=== PATIENT | male | born 1955 | race Caucasian/White ===

== ENCOUNTER 2016-10-06 08:58 | Emergency (ER) | payer SELFPAY ==
[~2016-10-06] VITALS: Ht 175.3 cm; Wt 85.9 kg
[2016-10-06 09:00] VITALS: BP 172/83; TEMP 99.1
[2016-10-06] MEDS ORDERED: GLUCOPHAGE500 MG/TAB PO (09:04)
[2016-10-06] MEDS ORDERED: ONGLYZA5 MG PO (09:05)
[2016-10-06] MEDS ORDERED: GLUCOTROL XL2.5 MG PO (09:05)
[2016-10-06 09:20] VITALS: PULSE 94
[2016-10-06] MEDS ORDERED: ULTRAM 50MG TAB50 MG PO (10:04)
== END 2016-10-06 10:15 | disposition home or self-care (01) ==
LOC: COL.ER 08:58
DX: S49.91XA Unspecified injury of right shoulder and upper arm, initial encounter (principal); E11.9 Type 2 diabetes mellitus without complications; Z79.84 Long term (current) use of oral hypoglycemic drugs; X50.0XXA Overexertion from strenuous movement or load, initial encounter; X50.3XXA Overexertion from repetitive movements, initial encounter; Y99.0 Civilian activity done for income or pay

== ENCOUNTER 2020-07-23 10:09 | Emergency (ER) | payer OTHER ==
[~2020-07-23] VITALS: Ht 175.3 cm; Wt 80.0 kg
[~2020-07-23 10:09] MED LIST: GLUCOPHAGE500 MG/TAB PO; GLUCOTROL XL2.5 MG PO; ONGLYZA5 MG PO; ULTRAM 50MG TAB50 MG PO
[2020-07-23 10:30] VITALS: TEMP 99.1
[2020-07-23 10:50] LABS: HEMATOCRIT 42.5 % (42.0-52.0); HEMOGLOBIN 13.6 g/dl (13.5-18.0); MEAN CELL VOLUME 91 fl (80.0-100.0); MEAN CORPUSCULAR HEMOGLOBIN 29 pg (27.0-31.0); MEAN CORPUSCULAR HGB CONC 32 g/dl (33.0-37.0); MEAN PLATELET VOLUME 10.2 fl (7.4-10.4); PLATELET COUNT 313 K/mm3 (130-400); RED BLOOD COUNT 4.65 M/mm3 (4.20-5.60); REDCELL DISTRIBUTION WIDTH-CV 13.3 % (11.5-14.5)
[2020-07-23 10:56] LABS: INR 1.1 (0.8-3.0)
[2020-07-23 10:57] LABS: COLLECTION METHOD CLEAN CATCH
[2020-07-23 10:59] LABS: PARTIAL THROMBOPLASTIN TIME 29.3 SECONDS (26.0-37.0)
[2020-07-23 11:01] LABS: ALBUMIN 4.2 gm/dL (3.5-5.0); BILIRUBIN,TOTAL 0.4 mg/dL (0.0-1.0); CALCIUM 8.9 mg/dL (8.4-10.2); CREATININE, serum 0.88 (0.66-1.25); POTASSIUM 4.8 mmol/L (3.4-5.0); TOTAL PROTEIN 7.8 gm/dL (6.4-8.2)
[2020-07-23 11:03] LABS: PH 5 (5-8); SQUAMOUS EPITHELIAL None Seen /hpf; URINE APPEARANCE Clear; URINE BACTERIA None Seen /hpf; URINE BILIRUBIN Negative (NEGATIVE); URINE BLOOD Negative (NEGATIVE); URINE COLOR Straw; URINE GLUCOSE Negative (NEGATIVE); URINE KETONE Negative (NEGATIVE); URINE LEUKOCYTE ESTERASE Negative (NEGATIVE); URINE NITRATE Negative (NEGATIVE); URINE PROTEIN(semi-quant) Negative (NEGATIVE); URINE RBC 0-2 /hpf; URINE UROBILINOGEN Negative (NEGATIVE)
[2020-07-23 11:14] LABS: TROPONIN-I 0.107 ng/mL (0.000-0.035)
[2020-07-23 13:25] VITALS: BP 128/74; PULSE 120
== END 2020-07-23 13:20 | disposition short-term general hospital (02) ==
LOC: COL.ER 10:09
PROVIDERS: Family Medicine
DX: I50.9 Heart failure, unspecified (principal); I21.4 Non-ST elevation (NSTEMI) myocardial infarction; E11.9 Type 2 diabetes mellitus without complications; F17.200 Nicotine dependence, unspecified, uncomplicated; Z79.84 Long term (current) use of oral hypoglycemic drugs
CPT/HCPCS: J1644; J1940; J3010; J7030

== ENCOUNTER 2020-08-05 11:21 | Emergency (ER) | payer OTHER ==
[~2020-08-05] VITALS: Ht 175.3 cm; Wt 77.3 kg
[2020-08-05 12:03] LABS: MEAN CELL VOLUME 92 fl (80.0-100.0); MEAN CORPUSCULAR HGB CONC 32 g/dl (33.0-37.0); MEAN PLATELET VOLUME 9.6 fl (7.4-10.4); PLATELET COUNT 380 K/mm3 (130-400); RED BLOOD COUNT 3.03 M/mm3 (4.20-5.60); REDCELL DISTRIBUTION WIDTH-CV 14.3 % (11.5-14.5)
[2020-08-05 12:05] LABS: HEMATOCRIT 27.9 % (42.0-52.0); MEAN CORPUSCULAR HEMOGLOBIN 30 pg (27.0-31.0)
[2020-08-05 12:06] LABS: INR 1.3 (0.8-3.0); PROTHROMBIN TIME 14.3 SECONDS (9.7-12.8)
[2020-08-05 12:09] LABS: PARTIAL THROMBOPLASTIN TIME 31.5 SECONDS (26.0-37.0)
[2020-08-05 12:17] LABS: CALCIUM 9.2 mg/dL (8.4-10.2); CREATININE, serum 1.53 (0.66-1.25); POTASSIUM 5.2 mmol/L (3.4-5.0); TOTAL PROTEIN 7.8 gm/dL (6.4-8.2)
[2020-08-05 12:26] LABS: BAND 1 % (0-10); EOSINOPHIL 6 % (0-4); LYMPHOCYTE 10 % (20.0-51.0); NEUTROPHILS 77 % (42.0-75.2); PLATELET ESTIMATE NORMAL (NORMAL)
[2020-08-05 12:27] LABS: HYPOCHROMIA 2+
[2020-08-05 12:36] LABS: TROPONIN-I 0.038 ng/mL (0.000-0.035)
[2020-08-05 14:15] VITALS: BP 87/52; PULSE 63; TEMP 98.5
== END 2020-08-05 14:17 | disposition short-term general hospital (02) ==
LOC: COL.ER 11:21
PROVIDERS: Family Medicine
DX: I95.9 Hypotension, unspecified (principal); I25.10 Atherosclerotic heart disease of native coronary artery without angina pectoris; E11.9 Type 2 diabetes mellitus without complications; Z95.9 Presence of cardiac and vascular implant and graft, unspecified; Z79.84 Long term (current) use of oral hypoglycemic drugs
CPT/HCPCS: J0692; J7030

== ENCOUNTER 2020-11-22 15:19 | Outpatient (RCR) | payer OTHER | END 2020-11-28 | disposition home or self-care (01) | LOC: COL.CR | DX: Z48.812 Encounter for surgical aftercare following surgery on the circulatory system (principal); Z95.1 Presence of aortocoronary bypass graft ==

== ENCOUNTER 2020-11-29 13:37 | Outpatient (RCR) | payer OTHER | END 2020-12-15 15:39 | disposition home or self-care (01) | LOC: COL.CR 13:37 | DX: Z48.812 Encounter for surgical aftercare following surgery on the circulatory system (principal); Z95.1 Presence of aortocoronary bypass graft ==

== ENCOUNTER 2021-10-04 09:00 | Emergency (ER) | payer MEDICARE ==
[~2021-10-04] VITALS: Ht 172.7 cm; Wt 84.1 kg
[2021-10-04 10:00] LABS: BASO % 0.4 % (0.0-2.0); EOS # 0.2 K/mm3 (0.0-0.7); EOS % 1.7 % (0.0-4.0); GRAN # 7.6 K/mm3 (1.4-6.5); GRAN % 78.3 % (42.2-75.2); HEMATOCRIT 45.5 % (42.0-52.0); LYMPH # 1.2 K/mm3 (1.2-3.4); LYMPH % 12.5 % (20.0-51.0); MEAN CELL VOLUME 89 fl (80.0-100.0); MEAN CORPUSCULAR HEMOGLOBIN 29 pg (27-31); MEAN CORPUSCULAR HGB CONC 33 g/dl (33.0-37.0); MEAN PLATELET VOLUME 10.2 fl (7.4-10.4); MONO # 0.7 K/mm3 (0.1-0.6); PLATELET COUNT 279 K/mm3 (130-400); RED BLOOD COUNT 5.11 M/mm3 (4.20-5.60); REDCELL DISTRIBUTION WIDTH-CV 13.3 % (11.5-14.5)
[2021-10-04 10:14] LABS: BILIRUBIN,TOTAL 0.5 mg/dL (0.2-1.2); CALCIUM 9.4 mg/dL (8.4-10.2); CREATININE, serum 0.83 mg/dL (0.72-1.25); POTASSIUM 4.6 mmol/L (3.5-4.5)
[2021-10-04 10:20] LABS: TROPONIN-I 0.015 ng/mL (0.00-0.033)
[2021-10-04] MEDS ORDERED: TOPROL XL 50MG50 MG PO (12:02)
[2021-10-04 12:39] VITALS: BP 143/114; PULSE 90; TEMP 97.6
== END 2021-10-04 12:40 | disposition home or self-care (01) ==
LOC: COL.ER 09:00
PROVIDERS: Personal Emergency Response Attendant
DX: I10 Essential (primary) hypertension (principal); Z76.0 Encounter for issue of repeat prescription; Z87.891 Personal history of nicotine dependence

== ENCOUNTER 2023-09-03 05:27 | Day surgery (SDC) | payer MEDICARE ==
[~2023-09-03] VITALS: Ht 172.7 cm; Wt 71.8 kg
[2023-09-03] VITALS (13 sets, daily range): BP systolic 107–163; BP diastolic 57–83; PULSE 58–81; TEMP 97.5–98.1
[~2023-09-03 05:27] MED LIST changes: +LR 1,000 ML IV SCH; +TOPROL XL 50MG50 MG PO
[2023-09-03] MEDS ORDERED: NS 1,000 ML IV SCH ×2 (06:00→09:30)
[2023-09-03] MEDS ORDERED: GLUCOTROL 5M5 MG/TAB PO (06:15)
[2023-09-03] MEDS ORDERED: FLEXERIL 1010 MG/TAB PO (06:17)
[2023-09-03] MEDS ORDERED: NORCO 325 MG-51 TAB PO (06:18)
[2023-09-03] MEDS ORDERED: CYMBALTA 20MG20 MG PO (06:18)
[2023-09-03] MEDS ORDERED: PRINIVIL20 MG PO (06:19)
[2023-09-03] MEDS ORDERED: CRESTOR20 MG PO (06:20)
[2023-09-03] MEDS ORDERED: CANA100T PO (06:21)
--- NOTE | 2023-09-03 06:25 | NUR ---
CALL PLACED TO GUSTAVO THACKER CRNA FOR CLARIFICATION OF ANESTHESIA ORDERS. TELEPHONE ORDER FROM GUSTAVO THACKER TO DISCONTINUE LR ORDER AND KEEP NS ORDER, CONSENT FOR GENERAL ANESTHESIA/SPINAL BLOCK WITH SEDATION. SEE ORDERS.
[2023-09-03] MEDS ORDERED: fentaNYL 50 MCG/ML 5 ML VIAL ONE (06:34)
[2023-09-03] MEDS ORDERED: Midazolam 2 MG/2 ML VIAL ONE (06:34)
[2023-09-03] MEDS ORDERED: Ondansetron 4 MG/2 ML VIAL ONE (06:34)
[2023-09-03] MEDS ORDERED: Lidocaine PF 2% (20 MG/ML) 5 ML VIAL ONE (06:34)
[2023-09-03] MEDS ORDERED: Tranexamic Acid 1,000 MG/10 ML VIAL ONE (07:53)
[2023-09-03] MEDS ORDERED: Morphine 4 MG/ML VIAL IM ONE (08:04)
[2023-09-03] MEDS ORDERED: Thrombin Human (Recombinant) 5,000 UNITS VIAL TP ONE (08:04)
[2023-09-03] MEDS ORDERED: Ondansetron 4 MG/2 ML VIAL IV PRN (08:15)
[2023-09-03] MEDS ORDERED: fentaNYL 50 MCG/ML 1 ML SYRINGE/VIAL [PACU/SDC ONLY] IV PRN (08:15)
[2023-09-03] MEDS ORDERED: HYDROmorphone 1 MG/1 ML SYRINGE [PACU/SDC ONLY] IV PRN (08:15)
[2023-09-03] MEDS ORDERED: Magnes Hydrox (MOM) 80 MG/ML 30 ML CUP PO PRN (09:30)
[2023-09-03] MEDS ORDERED: Mag/Al Hydrox/Simeth Susp 30 ML CUP PO PRN (09:30)
[2023-09-03] MEDS ORDERED: oxyCODONE 5 MG TAB PO PRN (09:30)
[2023-09-03] MEDS ORDERED: Morphine 4 MG/ML VIAL IV PRN (09:30)
[2023-09-03] MEDS ORDERED: Acetaminophen 500 MG TAB PO PRN (09:30)
[2023-09-03] MEDS ORDERED: Naloxone 0.4 MG/ML VIAL IV PRN (09:30)
[2023-09-03] MEDS ORDERED: Bisacodyl 5 MG TAB PO PRN (09:30)
[2023-09-03] MEDS ORDERED: Acetaminophen 500 MG TAB PO SCH (10:00)
--- NOTE | 2023-09-03 10:36 | NUR ---
PATIENT ARRIVED TO FLOOR AT 1000. DRESSING TO RT KNEE CDI. PATIENT STATES NO PAIN AT THIS TIME. BLOCK STILL IN EFFECT AT THSI TIME PATIENT CAN FEEL TOAUCH TO LOWER EXTRIMITY BUT UNABLE TO MOVE LEGS AT THSI TIME DUE TO BLOCK. VSS. PATIENT RECEIVED WATER AND SOME JELLO AND TOLERATED WELL. PATIENT HAS NO NEEDS AT THIS TIME. CALL LIGHT IN REACH
--- NOTE | 2023-09-03 12:10 | NUR ---
Data: Spiritual care visit attempted during Study Specialist rounds. Patient politely declined. Assessment: None. Patient declined. Plan of Care: Chaplains will remain available as needed requested while Patient is admitted to this hospital.
[2023-09-03] MEDS ORDERED: ASPIRIN E.C. 8181 MG PO (12:57)
[2023-09-03] MEDS ORDERED: Albuterol/Ipratropium 3 MG-0.5 MG/3 ML Neb Soln IH PRN (13:00)
[2023-09-03] MEDS ORDERED: ceFAZolin 2 G in Water For Injection,Sterile 20 ML IV SCH (14:00)
--- NOTE | 2023-09-03 14:39 | NUR ---
PATIENT CALLED STATING PAIN 9/10, PAIN MED GIVEN ORDERED. WILL CONTINUE TO MONITOR.
[2023-09-03] MEDS ORDERED: Insulin Lispro (HumaLOG) SQ SCH (17:00)
--- NOTE | 2023-09-03 20:00 | NUR ---
PT A&O X4 SITTING UP IN RECLINER. SBA BACK TO BED. VSS. PT RATING PAIN 4/10, WAS GIVEN PRN PAIN MEDS AT SHIFT CHANGE BY DAY NURSE. DRSG TO RIGHT KNEE CDI. INT TO LEFT WRIST PATENT. ERROL TO LLE. PT DENYING FURTHER NEEDS. CALL LIGHT IN REACH.
[2023-09-03] MEDS ORDERED: Ascorbic Acid 500 MG TAB PO SCH (21:00)
[2023-09-03] MEDS ORDERED: Celecoxib 200 MG CAP PO SCH (21:00)
[2023-09-03] MEDS ORDERED: Atorvastatin 40 MG TAB PO SCH (21:00)
[2023-09-03] MEDS ORDERED: Rosuvastatin 20 MG **** subs to Atorvastatin 40 MG PO SCH (21:00)
[2023-09-03] MEDS ORDERED: Sennosides/Docusate 8.6-50 MG TAB PO SCH (21:00)
--- NOTE | 2023-09-03 22:40 | NUR ---
PT REQUESTING PRN PAIN MEDS FOR RT KNEE PAIN 06/21, GAVE PER APR.
[2023-09-03] MEDS ORDERED: traZODone 50 MG TAB PO SCH (22:42)
[2023-09-04] VITALS (8 sets, daily range): BP systolic 126–174; BP diastolic 68–86; PULSE 65–76; TEMP 98.1–98.6
[2023-09-04 05:46] LABS: HEMATOCRIT 40.4 % (42.0-52.0); HEMOGLOBIN 13.4 g/dl (13.5-18.0)
--- NOTE | 2023-09-04 05:47 | NUR ---
PT LAYING IN BED WATCHING TV. PAIN CONTROLLED WITH PRN OXYCODONE THROUGHOUT THE NIGHT. DRSG TO RT KNEE REMAINS CDI. PT DENIES FURTHER NEEDS. CALL LIGHT IN REACH
[2023-09-04 06:02] LABS: CALCIUM 9.2 mg/dL (8.4-10.2); CREATININE, serum 0.85 mg/dL (0.72-1.25); POTASSIUM 3.7 mEq/L (3.5-4.5)
[2023-09-04] MEDS ORDERED: NORCO 325 MG-51 TAB PO (07:07)
[2023-09-04] MEDS ORDERED: ASPIRIN 81M81 MG/TA2 PO (07:07)
[2023-09-04] MEDS ORDERED: CEPHALEXIN500 M1 PO (07:08)
--- NOTE | 2023-09-04 08:00 | NUR ---
Pt. sitting up in chair. Pt. is A&OX3, assessment complete. Dressing rt. knee changed per orders at this time. Pt. with knee high franklyn hose on, applied komal wrap to new abd. Pt. reported pain at a 4 on pain scale, gave meds per orders. Pt. denies further needs, call light within reach.
--- NOTE | 2023-09-04 08:55 | NUR ---
home weatherizing worker met with pt to discuss discharge planning. He reports to live with his brother, Kobi [phone] in [place]. He sees Dr. Martínez for PCP needs and obtains medications from [employer] mail service with no difficulties. SW asked about him telling the hospitalist he cannot afford his inhalers. Pt reports they are $25 and he just does not think he needs it and if he does, he will reach out to the [facility] for assistance or a script there. Pt is independent with ADLS and uses a [facility] now for DME. He does not have a DPOA-HC and reports he is not , has no children, and his other siblings have passed. He was aware of needing OP PT and reports going to a place on [address] and does not recall the name. He reports having been in contact with him and they are aware he needs to get in as soon as possible. Pt had further questions regarding his surgery and they time it took for his knee to get operated on. EDOUARD advised he speak with Dr. Fried regarding this. Discharge Plan: home with OP PT
[2023-09-04] MEDS ORDERED: Magnes Hydrox (MOM) 80 MG/ML 30 ML CUP PO SCH (09:00)
[2023-09-04] MEDS ORDERED: DULoxetine 20 MG CAP PO SCH (09:00)
--- NOTE | 2023-09-04 13:00 | NUR ---
Pt. ready for discharge. INT discontined from lt. forearm. Reviewed and gave discharge packet to the pt. Pt. voices understanding. Pt. sent home with supplies for dressing changes. Pt. waiting for ride.
--- NOTE | 2023-09-04 14:00 | NUR ---
Pt. ride has arrived. Pt. escorted out with wheelchair.
== END 2023-09-04 14:00 | disposition home or self-care (01) ==
LOC: SDCO 05:27 → SURG 10:00 → SDCO 09-04 14:00 → SURG 09-04 14:00
PROVIDERS: Physician Assistant
DX: M17.11 Unilateral primary osteoarthritis, right knee (principal); E11.9 Type 2 diabetes mellitus without complications; G62.9 Polyneuropathy, unspecified; I25.10 Atherosclerotic heart disease of native coronary artery without angina pectoris; I25.2 Old myocardial infarction; I10 Essential (primary) hypertension; E78.5 Hyperlipidemia, unspecified; J44.9 Chronic obstructive pulmonary disease, unspecified; Z95.1 Presence of aortocoronary bypass graft; Z79.84 Long term (current) use of oral hypoglycemic drugs; Z87.891 Personal history of nicotine dependence; Z79.899 Other long term (current) drug therapy
CPT/HCPCS: OP; A9284; C1713; C1776; J0665; J0688; J0690; J1580; J2250; J2270; J2405; J2704; J2795; J3010; J7030

== ENCOUNTER 2023-10-11 15:37 | Day surgery (SDC) | payer MEDICARE ==
[2023-10-11] VITALS (7 sets, daily range): BP systolic 104–130; BP diastolic 60–81; PULSE 64–88; TEMP 97.7–98.2
[~2023-10-11] VITALS: Ht 172.7 cm; Wt 69.5 kg
[~2023-10-11 15:37] MED LIST changes: +ASPIRIN 81M81 MG/TA2 PO; +ASPIRIN E.C. 8181 MG PO; +CANA100T PO; +CEPHALEXIN500 M1 PO; +CRESTOR20 MG PO; +CYMBALTA 20MG20 MG PO; +FLEXERIL 1010 MG/TAB PO; +GLUCOTROL 5M5 MG/TAB PO; +NORCO 325 MG-51 TAB PO; +PRINIVIL20 MG PO
[2023-10-11] MEDS ORDERED: Lidocaine PF 2% (20 MG/ML) 5 ML VIAL ONE (18:08)
[2023-10-11] MEDS ORDERED: fentaNYL 50 MCG/ML 5 ML VIAL ONE (18:10)
[2023-10-11] MEDS ORDERED: hydrALAZINE 20 MG/ML 1 ML VIAL IV PRN (18:30)
[2023-10-11] MEDS ORDERED: Meperidine 50 MG/ML 1 ML VIAL IV PRN (18:30)
[2023-10-11] MEDS ORDERED: fentaNYL 50 MCG/ML 1 ML SYRINGE/VIAL [PACU/SDC ONLY] IV PRN (18:30)
[2023-10-11] MEDS ORDERED: Ondansetron 4 MG/2 ML VIAL IV PRN (18:30)
[2023-10-11] MEDS ORDERED: HYDROmorphone 1 MG/1 ML SYRINGE [PACU/SDC ONLY] IV PRN (18:30)
[2023-10-11] MEDS ORDERED: Ondansetron 4 MG/2 ML VIAL ONE (18:50)
[2023-10-11] MEDS ORDERED: dexAMETHasone 10 MG/ML VIAL ONE (18:50)
[2023-10-11] MEDS ORDERED: Ketorolac 30 MG/ML VIAL ONE (18:52)
[2023-10-11] MEDS ORDERED: Gentamicin 80 MG/50 ML IV.SOLN IR ONE (18:52)
[2023-10-11] MEDS ORDERED: ePHEDrine 50 MG/ML VIAL ONE (18:55)
[2023-10-11] MEDS ORDERED: Naloxone 0.4 MG/ML VIAL IV PRN (19:30)
[2023-10-11] MEDS ORDERED: ULTRAM 50MG TAB50 MG PO (19:31)
--- NOTE | 2023-10-11 20:20 | NUR ---
Patient arrived to room 349 via bed from PACU. Oriented to room and policy. Provided with sandwich box and discharge criteria covered. Post of vitals initiated and WNL. Dressing to right [id number] white with komal. Fresh ice applied. CMS WNL. IV to right forearm with post op fluids infusing without difficulty. Call light in reach. Will monitor.
--- NOTE | 2023-10-11 20:34 | NUR ---
Dr Fried called at this time for pain medication order as patient only has IV PACU orders. New orders placed for [place]. WIll monitor.
--- NOTE | 2023-10-11 21:20 | NUR ---
Discharge criteria met. Patient has tolerated PO without nausea. [place] for pain with good results. VS stable. Has voided without difficulty. Discharge instructions given both verbal and hanwritten. Discussed f/u appt, s/s of infection and home medications. Also discussed dressing care. INT to right forearm DCd-cath intact. Dressing ot right knee remains CDI. Patient is currently waiting for ride and instructed to call when ready to be pushed down via wheelchair. Verbalizes understanding. Call light in reach. Will monitor.
--- NOTE | 2023-10-11 22:17 | NUR ---
Patients friend has arrived to transport patient home. Patient pushed out via wheelchair in stable condition.
== END 2023-10-11 22:00 | disposition home or self-care (01) ==
LOC: SDCO 15:37 → SURG 15:38 → SDCO 18:00 → SURG 20:15 → SDCO 22:00
DX: T81.31XA Disruption of external operation (surgical) wound, not elsewhere classified, initial encounter (principal); Z87.891 Personal history of nicotine dependence
CPT/HCPCS: OP; J0690; J1100; J1170; J1580; J1885; J2405; J2704; J3010; J7120

== ENCOUNTER 2023-10-15 11:22 | Emergency (ER) | payer MEDICARE ==
[~2023-10-15] VITALS: Ht 172.7 cm; Wt 69.5 kg
[~2023-10-15 11:22] MED LIST changes: -LR 1,000 ML IV SCH
[2023-10-15 11:34] VITALS: BP 144/80; TEMP 97.6
[2023-10-15] MEDS ORDERED: BACTRIM DS 8001 TAB PO (13:10)
[2023-10-15 13:28] VITALS: PULSE 81
== END 2023-10-15 13:29 | disposition home or self-care (01) ==
LOC: COL.ER 11:22
DX: L03.115 Cellulitis of right lower limb (principal); Z96.651 Presence of right artificial knee joint; Z87.891 Personal history of nicotine dependence

== ENCOUNTER 2023-11-13 12:36 | Day surgery (SDC) | payer MEDICARE ==
[~2023-11-13] VITALS: Ht 172.7 cm; Wt 70.4 kg
[2023-11-13] VITALS (12 sets, daily range): BP systolic 100–139; BP diastolic 52–74; PULSE 55–79; TEMP 98–98.7
[2023-11-13 09:36] LABS: BASO % 0.3 % (0.0-2.0); EOS # 0.4 K/mm3 (0.0-0.7); EOS % 4.3 % (0.0-4.0); GRAN # 6.1 K/mm3 (1.4-6.5); GRAN % 70.9 % (42.2-75.2); HEMATOCRIT 42.6 % (42.0-52.0); HEMOGLOBIN 13.8 g/dl (13.5-18.0); LYMPH # 1.5 K/mm3 (1.2-3.4); MEAN CELL VOLUME 91 fl (80.0-100.0); MEAN CORPUSCULAR HEMOGLOBIN 29 pg (27-31); MEAN CORPUSCULAR HGB CONC 32 g/dl (33.0-37.0); MEAN PLATELET VOLUME 9.4 fl (7.4-10.4); MONO # 0.6 K/mm3 (0.1-0.6); MONO % 7.2 % (1.7-9.3); PLATELET COUNT 257 K/mm3 (130-400); RED BLOOD COUNT 4.69 M/mm3 (4.20-5.60)
[2023-11-13 09:44] LABS: ERYTHROCYTE SEDIMENTATION RATE 43 mm/hr (0-30)
[~2023-11-13 12:36] MED LIST changes: +BACTRIM DS 8001 TAB PO; +D5 1/2 NS 1,000 ML IV SCH; +HYDROmorphone 1 MG/1 ML SYRINGE [PACU/SDC ONLY] IV PRN; +Ondansetron 4 MG/2 ML VIAL IV PRN; +droPERidol 2.5 MG/ML 2 ML VIAL IV PRN; +fentaNYL 50 MCG/ML 1 ML SYRINGE/VIAL [PACU/SDC ONLY] IV PRN; +hydrALAZINE 20 MG/ML 1 ML VIAL IV PRN
[2023-11-13] MEDS ORDERED: Midazolam 2 MG/2 ML VIAL ONE (13:38)
[2023-11-13] MEDS ORDERED: NS 10 ML IV ONE (13:38)
[2023-11-13] MEDS ORDERED: Lidocaine PF 2% (20 MG/ML) 5 ML VIAL ONE (13:38)
[2023-11-13] MEDS ORDERED: Tranexamic Acid 1,000 MG/10 ML VIAL ONE (13:38)
[2023-11-13] MEDS ORDERED: LR 1,000 ML IV ONE (13:45)
[2023-11-13] MEDS ORDERED: HYDROmorphone 1 MG/1 ML SYRINGE [PACU/SDC ONLY] IV PRN (14:00)
[2023-11-13] MEDS ORDERED: Ondansetron 4 MG/2 ML VIAL IV PRN (14:00)
[2023-11-13] MEDS ORDERED: hydrALAZINE 20 MG/ML 1 ML VIAL IV PRN (14:00)
[2023-11-13] MEDS ORDERED: fentaNYL 50 MCG/ML 1 ML SYRINGE/VIAL [PACU/SDC ONLY] IV PRN (14:00)
[2023-11-13] MEDS ORDERED: droPERidol 2.5 MG/ML 2 ML VIAL IV PRN (14:00)
[2023-11-13] MEDS ORDERED: ASPIRIN E.C. 8181 MG PO (15:04)
[2023-11-13] MEDS ORDERED: BACTRIM DS 8001 TAB PO (15:05)
[2023-11-13] MEDS ORDERED: ULTRAM 50MG TAB50 MG PO (15:06)
[2023-11-13] MEDS ORDERED: Morphine 4 MG/ML VIAL IV PRN (15:15)
[2023-11-13] MEDS ORDERED: Naloxone 0.4 MG/ML VIAL IV PRN (15:15)
[2023-11-13] MEDS ORDERED: oxyCODONE 5 MG TAB PO PRN (15:15)
[2023-11-13] MEDS ORDERED: Phenylephrine 10 MG/ML VIAL ONE (15:53)
[2023-11-13] MEDS ORDERED: Gentamicin 80 MG/50 ML IV.SOLN IR ONE (16:00)
--- NOTE | 2023-11-13 17:50 | NUR ---
PT TO ROOM 331 PER BED WITH REPORT FROM JASMYNE LACEY PACU @[id number]. PT IS A/O X4 LUNGS CTA, BOWEL SOUNDS PRESENT. IV TO LFA. DRESSING TO RIGHT KNEE CDI WITH OCCLUSIVE BECCA WRAP.
[2023-11-13] MEDS ORDERED: Ibuprofen 400 MG TAB PO SCH (19:11)
--- NOTE | 2023-11-13 20:00 | NUR ---
PATIENT IS A&O AND SITTING UP IN BED VISITING WITH FRIEND. VSS. NO C/O PAIN OR N/V AT THIS TIME. PATIENT REPORTS HIS BLE ARE STILL VERY NUMB FROM THE SPINAL AND HE ISN'T ABLE TO MOVE THEM YET. RLE ELEVATED WITH PILLOW & ICE PACK. RLE DSG IS CD&I WITH ACEWRAP AND TECHNOL BRACE INPLACE. POSITIVE PEDAL PULSES. TOLERATING ADA DIET. LAST BS WAS 89. RIGHT FORARM IV TO INT. VOIDING USING URINAL. HEAD TO TOE ASSESSMENT COMPLETE. NO OTHER NEEDS AT THIS TIME. CALL LIGHT IN REACH.
[2023-11-13] MEDS ORDERED: ceFAZolin 1 G in Water For Injection,Sterile 10 ML IV SCH (21:00)
[2023-11-13] MEDS ORDERED: Lisinopril 20 MG TAB PO SCH (22:19)
[2023-11-13] MEDS ORDERED: DULoxetine 30 MG CAP PO SCH (22:21)
[2023-11-13] MEDS ORDERED: Rosuvastatin 20 MG **** subs to Atorvastatin 40 MG PO SCH (22:30)
[2023-11-13] MEDS ORDERED: Dextrose (Glucose) 15 GM (4 x 3.75 GM) Chewable TABLET PACK PO PRN (23:15)
[2023-11-13] MEDS ORDERED: Dextrose 50% Water 25 GM/50 ML SYRINGE IV PRN (23:15)
[2023-11-13] MEDS ORDERED: Glucagon 1 MG VIAL IM PRN (23:15)
[2023-11-13] MEDS ORDERED: Atorvastatin 40 MG TAB PO SCH (23:30)
[2023-11-14 01:00] VITALS: BP_SYST 109
[2023-11-14 04:25] VITALS: BP 122/70; BP_SYST 109; PULSE 71; TEMP 99
[2023-11-14 08:00] VITALS: BP_SYST 146
[2023-11-14] MEDS ORDERED: Insulin Lispro (HumaLOG) SQ SCH (08:00)
[2023-11-14 09:05] VITALS: BP 146/76; PULSE 67; TEMP 98.1
--- NOTE | 2023-11-14 09:43 | NUR ---
SHIFT ASSESSMENT COMPLETED. VSS. PATIENT AWAKE IN BED AWAITING PHYSICAL THEAPY. PATIENT WBAT PER DR. COTTER. ALL MORNING MEDS GIVEN ORDERED. PATIENT STATES PAIN 4/10 PAIN MEDS GIVEN ORDERED. PATIENT HAS NO OTHER REQUEST AT THIS TIME. CALL LIGHT IN REACH
[2023-11-14 12:00] VITALS: BP_SYST 123
[2023-11-14 12:42] VITALS: BP 123/74; PULSE 66; TEMP 98.2
--- NOTE | 2023-11-14 16:08 | NUR ---
Epic Interface Analyst attended clinical rounds with the team and patient expressed frustration that he did not feel he knew what the plan was from Dr. Fried and had many questions about his surgery. Patient also requested to be able to get out of bed. PT ordered. SW followed up with patient to complete initial intake. Patient lives in [place] with his brother, Kobi (ph#[phone]) and sees Dr. Schuster for primary care. Patient gets some of his medications by mail and some through [facility]. Patient has a cane and walker that he used after his inital surgery on 09/03/23, but stated he has not needed them currently. Patient reported he did PT at [facility], but stopped going there when he did not pay his bill. Patient reported independence with ADLS and works at [employer]. Patient does not have DPOA-HC and was not interested in completing one. Patient is not , has no children, and his parents are . Patient's only living sibling is his brother, Kobi. Discharge Plan: Home
== END 2023-11-14 13:47 | disposition home or self-care (01) ==
LOC: SDCO 12:36 → SURG 17:15 → SDCO 18:00
PROVIDERS: Orthopaedic Surgery
DX: M96.89 Other intraoperative and postprocedural complications and disorders of the musculoskeletal system (principal); I10 Essential (primary) hypertension; E78.5 Hyperlipidemia, unspecified; I25.10 Atherosclerotic heart disease of native coronary artery without angina pectoris; E11.9 Type 2 diabetes mellitus without complications; Z87.891 Personal history of nicotine dependence; Z79.82 Long term (current) use of aspirin; Z95.1 Presence of aortocoronary bypass graft; Z79.899 Other long term (current) drug therapy; Z79.84 Long term (current) use of oral hypoglycemic drugs
CPT/HCPCS: OP; C1763; C1776; J0690; J1580; J2250; J2270; J2371; J2704; J7120; L1830